=== PATIENT | female | born 1985 | race Caucasian/White ===

== ENCOUNTER 2017-10-23 01:51 | Inpatient (IN) | payer MEDICAID ==
[2017-10-23] MEDS ORDERED: BUTORPHANOL 2 MG INJ IV (03:00)
[2017-10-23] MEDS ORDERED: OXYCODONE/ASPIRIN (4.88/325) TAB PO (03:00)
[2017-10-23] MEDS ORDERED: METHYLERGONOVINE 0.2 MG INJ IM ×2 (03:00→08:00)
[2017-10-23] MEDS ORDERED: CARBOPROST 250 MCG INJ IM ×2 (03:00→08:00)
[2017-10-23] MEDS ORDERED: IBUPROFEN 600 MG TAB PO (03:00)
[2017-10-23] MEDS ORDERED: OXYTOCIN 30 UNITS/LR 500 ML IV ×2 (03:00→08:00)
[2017-10-23] MEDS ORDERED: LIDOCAINE 1% (MPF) 30 ML INJ INJ (03:00)
[2017-10-23] MEDS ORDERED: MISOPROSTOL 200 MCG TAB PR ×2 (03:00→08:00)
[2017-10-23] MEDS ORDERED: AMPICILLIN 2 GM/NS (PMX) 100 ML (03:32)
[2017-10-23] MEDS: LACTATED RINGER'S 1,000 ML IV* ×3 (03:35→15:38)
[2017-10-23] MEDS ORDERED: morphine 10 MG INJ (03:51)
[2017-10-23] MEDS: OXYTOCIN 30 UNITS/LR 500 ML IV ×2 (04:01→04:06)
[2017-10-23 04:26] LABS: RUPTURE FETAL MEMBRANES NEGATIVE (NEGATIVE)
[2017-10-23 04:27] LABS: ADD MAN DIFF? NO
[2017-10-23 04:30] LABS: BASOPHILS % 0.4 % (0.0-2.0); EOSINOPHILS % 0.5 % (0.0-7.0); HEMATOCRIT 33.4 % (37.0-47.0); HEMOGLOBIN 11.5 g/dl (12.0-16.0); LYMPHOCYTES # 3.3 10^3/ul (0.8-2.9); LYMPHOCYTES % 43.7 % (15.0-51.0); MEAN CORPUSCULAR HEMOGLOBIN 33.7 pg (29.0-33.0); MEAN CORPUSCULAR HGB CONC 34.4 g/dl (32.0-37.0); MEAN CORPUSCULAR VOLUME 97.9 fl (82.0-101.0); MEAN PLATELET VOLUME 11.1 fl (7.4-10.4); MONOCYTE # 0.7 10^3/ul (0.3-0.9); MONOCYTES % 9.4 % (0.0-11.0); NEUTROPHIL # 3.4 10^3/ul (1.6-7.5); NEUTROPHILS % 44.7 % (39.0-77.0); PLATELET COUNT 170 10^3/UL (140-415); RED BLOOD COUNT 3.41 10^6/ul (4.20-5.40)
[2017-10-23 04:30] LABS: WHITE BLOOD COUNT 7.5 10^3/ul (4.8-10.8)
[2017-10-23 04:50] LABS: INR 0.93; PROTIME 12.6 Sec (11.9-14.9)
[2017-10-23] MEDS ORDERED: ACETAMINOPHEN 325 MG TAB PO (08:00)
[2017-10-23] MEDS ORDERED: HYDROCODONE/APAP (5/325) TAB PO (08:00)
[2017-10-23] MEDS ORDERED: WITCH HAZEL/GLYCERIN PAD PR (08:00)
[2017-10-23] MEDS: LANOLIN 7 GM TUBE TOP (08:44)
[2017-10-23] MEDS: DIBUCAINE 1% 30 GM OINT TOP (08:44)
[2017-10-23] MEDS: BENZOCAINE 20% 56 ML SPRAY TOP (08:44)
[2017-10-23] MEDS: SENNA/DOCUSATE NA (8.6MG/50MG) TAB PO ×2 (08:45→20:55)
[2017-10-23] MEDS: IBUPROFEN 600 MG TAB PO ×2 (12:01→18:07)
[2017-10-23 15:45] LABS: RAPID PLASMA REAGIN NONREACTIVE (NR)
[2017-10-24] MEDS: IBUPROFEN 600 MG TAB PO ×4 (00:11→18:09)
[2017-10-24 08:29] LABS: ADD MAN DIFF? NO
[2017-10-24 08:35] LABS: WHITE BLOOD COUNT 7.7 10^3/ul (4.8-10.8)
[2017-10-24 08:35] LABS: BASOPHILS % 0.3 % (0.0-2.0); EOSINOPHILS # 0.1 10^3/ul (0.0-0.5); EOSINOPHILS % 0.8 % (0.0-7.0); HEMATOCRIT 31.1 % (37.0-47.0); HEMOGLOBIN 10.5 g/dl (12.0-16.0); LYMPHOCYTES # 2.5 10^3/ul (0.8-2.9); LYMPHOCYTES % 32.6 % (15.0-51.0); MEAN CORPUSCULAR HEMOGLOBIN 33.8 pg (29.0-33.0); MEAN CORPUSCULAR HGB CONC 33.8 g/dl (32.0-37.0); MEAN PLATELET VOLUME 11.2 fl (7.4-10.4); MONOCYTE # 0.7 10^3/ul (0.3-0.9); MONOCYTES % 8.4 % (0.0-11.0); NEUTROPHIL # 4.4 10^3/ul (1.6-7.5); NEUTROPHILS % 56.7 % (39.0-77.0); PLATELET COUNT 176 10^3/UL (140-415); RED BLOOD COUNT 3.11 10^6/ul (4.20-5.40); RED CELL DISTRIBUTION WIDTH 13.3 % (11.5-14.5)
[2017-10-24] MEDS: SENNA/DOCUSATE NA (8.6MG/50MG) TAB PO ×2 (09:27→21:18)
[2017-10-25] MEDS: IBUPROFEN 600 MG TAB PO ×4 (00:25→17:40)
[2017-10-25] MEDS: SENNA/DOCUSATE NA (8.6MG/50MG) TAB PO (09:07)
[2017-10-25] MEDS: DIPHTH/TET/ACEL PERTUSS (ADULT) 0.5 ML VIAL IM* (10:37)
== END 2017-10-25 18:21 | disposition home or self-care (01) | DRG 775 ==
LOC: OBT 01:51 → L-D 01:51 → OBT 02:30 → L-D 02:30 → PP1 06:30
PROVIDERS: Obstetrics & Gynecology
PROC: 10E0XZZ Delivery of Products of Conception, External Approach (ICD-10-PCS; principal; 2017-10-23)
PROC: 3E0234Z Introduction of Serum, Toxoid and Vaccine into Muscle, Percutaneous Approach (ICD-10-PCS; 2017-10-25)
DX: O42.013 Preterm premature rupture of membranes, onset of labor within 24 hours of rupture, third trimester (principal); Z3A.36 36 weeks gestation of pregnancy; Z37.0 Single live birth; Z23 Encounter for immunization
CPT/HCPCS: 84112; 85025; 85610; 85730; 86592; 86850; 86900; 86901; 90715